=== PATIENT | female | born 1975 | race Caucasian/White ===

== ENCOUNTER → 2021-01-10 15:29 | Outpatient (BNVA) | payer SELFPAY | PROVIDERS: Visit Provider Obstetrics & Gynecology | DX: N93.9 Abnormal uterine and vaginal bleeding, unspecified (principal); Z12.39 Encounter for other screening for malignant neoplasm of breast | CPT/HCPCS: 84443; 85025 ==

== ENCOUNTER → 2024-12-01 15:17 | Outpatient (BNVA) | payer SELFPAY | PROVIDERS: PCP Nurse Practitioner Family; Visit Provider Nurse Practitioner | DX: G56.03 Carpal tunnel syndrome, bilateral upper limbs (principal); M65.332 Trigger finger, left middle finger; M65.331 Trigger finger, right middle finger | CPT/HCPCS: 73130 ==

== ENCOUNTER 2025-02-25 08:17 | Outpatient (CLI) | payer OTHER, SELFPAY ==
[2025-02-25 08:49] LABS: Hematocrit 44.6 % (36-47); Hemoglobin 14.60 g/dL (11.27-16.99); Mean Corpuscular HGB Conc 32.7 g/dL (30-55); Mean Corpuscular Hemoglobin 30.0 pg (27-33); Mean Corpuscular Volume 91.6 fl (85-98); Nucleated Red Blood Cells % 0 %; Platelet Count 324 10^3/cmm (157-399); Red Blood Count 4.87 10^6/uL (3.85-5.65); White Blood Count 6.19 10^3/uL (3.29-11.43)
[2025-02-25 08:51] LABS: Glucose Urine UA Negative (Normal); Nitrate Urine Negative (Negative); Specific Gravity, Urine 1.020 (1.005-1.030)
[2025-02-25 08:53] LABS: Add Urine Microscopic? YES
[2025-02-25 09:13] LABS: Alanine Aminotransferase 25 U/L (0-33); Albumin Level 4.3 g/dL (3.5-5.2); Alkaline Phosphatase 97 U/L (35-105); Anion Gap 13.4 (5-19); Aspartate Amino Transferase 18 U/L (0-32); Blood Urea Nitrogen 13 mg/dL (6-20); Calcium 9.2 mg/dL (8.5-10.5); Carbon Dioxide 28 mmol/L (22-29); Chloride 102 mmol/L (98-107); Globulin 3.3 g/dL (1.3-4.6); Glucose 109 mg/dL (65-115); Osmolality Calculated 289 mOsm/kg (285-295); Potassium 4.4 mmol/L (3.5-5.1); Sodium 139 mmol/L (136-145); Total Protein 7.6 g/dL (6.6-8.7)
== END 2025-02-25 08:18 | disposition home or self-care (01) ==
PROVIDERS: PCP Nurse Practitioner Family; Visit Provider Nurse Practitioner
DX: G56.01 Carpal tunnel syndrome, right upper limb (principal)
CPT/HCPCS: 36415; 80053; 81001; 85025

== ENCOUNTER 2025-03-05 11:31 | Day surgery (SDC) | payer OTHER, SELFPAY ==
[2025-03-05] VITALS (12 sets, daily range): BP systolic 121–171; BP diastolic 69–104; PULSE 49–99; RESP 12–17; TEMP 36.2–36.8; O2SAT 92–99; BMI 35.4
[2025-03-05] MEDS: acetaminophen 1,000 MG/100 ML PIGGYBACK 400 MG IV (12:05)
--- NOTE | 2025-03-05 13:47 | ANES.PREANE2 ---
Pre-Anesthetic Assessment Height/Weight: Height 1.57 m Weight 87.997 kg Temp Pulse Resp BP Pulse Ox O2 Del Method 97.7 F 49 L 17 171/104 95 Room Air 03/05/25 11:53 03/05/25 11:53 03/05/25 11:53 03/05/25 11:53 03/05/25 11:53 03/05/25 11:54 Operation Date: 03/05/25 13:45 Proposed Procedures p RIGHT Carpal Tunnel Release(Right) - Marycarmen Durbin MD s RIGHT Long FingerTrigger Finger Release(Right) - Marycarmen Durbin MD Familial anesthetic complications: None Was Beta Yeyo taken within 24 hours: N/A Was Clonidine taken within 24 hours: N/A Last intake: Intake Last Liquid Date 03/04/25 Last Liquid Time 18:30 Last Solid Date 03/04/25 Last Solid Time 18:30 Social No alcohol and No tobacco Exam alert, oriented x 3, clear to auscultation bilaterally and regular rate & rhythm Airway Mallampati: Class II Dentition: full CV/HEM Hypertension Anesthetic Plan ASA status: 2 Anesthesia: General Risk of > 500 ml blood loss (7ml/kg in children): No Medications/Allergies Home Medications ?Medication ?Instructions ?Recorded ?Confirmed ?Last Taken ?Type citalopram 20 mg tablet 20 mg PO DAILY 01/10/21 03/05/25 03/05/25 History lisinopril 20 mg tablet 20 mg PO DAILY 01/10/21 03/04/25 03/04/25 History Allergies Allergy/AdvReac Type Severity Reaction Status Date / Time No Known Allergies Allergy Verified 03/05/25 11:49 Current Medications Generic Name Dose Route Start Last Admin Trade Name Freq PRN Reason Stop Dose Admin Sodium Chloride 1,000 mls @ 30 mls/hr 03/05/25 11:45 03/05/25 12:02 Sodium Chloride 0.9% IV 03/06/25 11:44 30 mls/hr .Q24H JACE Administration PFSH Anesthesia Medical History Anxiety and depression Diagnosed at the age of 24 and has been on medication since then managed by her primary care provider. Does not have a therapist or psychiatrist. Chronic hypertension Diagnosed at the age of 27 and has been well controlled on lisinopril managed by her primary care provider. 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 No pertinent past medical history Denies diabetes, asthma, seizures, DVT/PE PCP: GRECIA [facility] Surgical History S/P tubal ligation Laparoscopic procedure performed in 2010. Status post breast reduction 2020-bilateral Family History Grandmother Breast cancer maternal, diagnosed in her 60s Father Diabetes Grandfather Heart disease maternal Mother Hyperlipidemia Hypertension Stroke TIAs Denies family history of Colon cancer Ovarian cancer Uterine cancer Thyroid disease Social History Smoking and tobacco/nicotine status: never used tobacco/nicotine
--- NOTE | 2025-03-05 13:48 | W.PM.OPSUD ---
Surgery/Procedure H&P Update DATE OF PROCEDURE: March 05, 2025 DATE H&P PERFORMED: 02/20/25 H&P UPDATE INFORMATION: I have reviewed H&P completed within last 30 days, I have examined patient prior to procedure, No changes to prior documentation, H&P is in [facility] EMR on date indicated and Risks and benefits of the procedure reviewed PLANNED PROCEDURE: Operation Date: 03/05/25 13:45 Proposed Procedures p RIGHT Carpal Tunnel Release(Right) - Marycarmen Durbin MD s RIGHT Long FingerTrigger Finger Release(Right) - Marycarmen Durbin MD Related Problem List Diagnoses 1. Trigger finger, right middle finger: 2. Right carpal tunnel syndrome:
[2025-03-05] MEDS: ceFAZolin 2,000 mg SDV 2000 MG IVP (14:11)
[2025-03-05] MEDS: BUPivacaine 0.5% INJ 30 mL XX (14:32)
--- NOTE | 2025-03-05 15:48 | P.OP_ITS ---
Operative Report Date of procedure: March 05, 2025 Pre-op diagnosis: Right carpal tunnel syndrome and right long finger triggering Post-op diagnosis: Right carpal tunnel syndrome and right long finger triggering Post-op findings: Significant compression across the carpal canal with some fibrous tissue, triggering of the right long finger with abrasion injury to the flexor tendons Procedure done: Right carpal tunnel release Right long finger trigger release Implants: None Specimens removed/disposition: None Pathology: None Surgeon: Marycarmen Durbin MD Retail Management Trainee: None Anesthesia: General (Per LMA, ASA 2) Estimated blood loss (mL): 2 Tourniquet time (min): 32 (At 250 mmHg) IV fluids (mL): 1,100 Complications: None Findings: As above Condition: stable Disposition: PACU (Then to same-day surgery for discharge to home) Brief History: This 49-year-old woman presented to the office complaining of numbness and tingling in her right hand. She had nerve conduction studies documenting entr apment of the right median nerve at the wrist. At the time of her preoperative appointment discussion, she also complains significantly of triggering of the right long finger. Therefore, she was scheduled for right carpal tunnel release with release of right long trigger finger at the same time. Risks and complications were discussed with her. Consents were signed and questions were answered. The afternoon of surgery, she had further opportunity to ask questions. Procedure: The patient was brought to the operating theater. The patient had a general anesthesia per LMA. ASA 2. The tourniquet was elevated to 250 mmHg for a total tourniquet time of 32 minutes. The patient was also given Ancef 2gm preoperatively. The arm was then prepped and draped with DuraPrep in usual fashion with the arm draped free. A surgical pause was performed. At the time, the surgical pause, we confirmed the site and side of surgery. We also confirmed the patient's identity, appropriate and timely administration of preoperative antibiotics and preoperative surgical markings. An incision was then made along the thenar crease. The incision crossed the wrist joint in a curvilinear fashion. Dissection continued through skin and soft tissues using a scalpel. The palmaris longus was identified along with the transverse carpal ligament. Each of these was released carefully to avoid injury to the median nerve. We were able to dissect gently into the carpal canal which was noted to be quite tight with significant compression across the median nerve. The nerve was visualized and was an hourglass shape. The canal was subsequently palpated to assure there was no bony encroachment upon the canal. The canal was then palpated distally and proximally to assure that my small finger was passed easily without impingement. Finding this to be so, attention was directed to closure. The wound was irrigated with ropivacaine plain. It was then closed with 3-0 nylon in an interrupted mattress fashion. Attention was then directed to the right long finger. An incision was made along the distal palmar crease beneath the long finger. Dissection continued through the skin to the subcutaneous tissues using a scalpel. Blunt dissection was then utilized to spread soft tissues and allow access to the A1 adriana. Each A1 adriana was identified. It was then incised longitudinally and sharply using a knife. This was accomplished without difficulty and atraumatically. Once the A1 adriana was released, the tendons were brought up out of the wound and evaluated. There was evidence of abrasion from the A1 adriana on the flexor tendons, but there was no significant loss of size or mass. The tendons were returned to normal position. The wound was irrigated and subsequently closed with 3-0 nylon in an interrupted mattress fashion. The wound was also injected with bupivacaine subcutaneously. Sterile dressings were placed consisting of Dermabond, OpSite, fluffed fluffs, sterile soft roll, and an Tony wrap. Tourniquet was released after 32 minutes. There were no specimens. The procedure was well-tolerated and the patient will be discharged home to follow-up in the office. Related Problem List Diagnoses 1. Right carpal tunnel syndrome: 2. Trigger finger, right middle finger:
--- NOTE | 2025-03-05 17:13 | ANE.PACU2 ---
Inpatient post-anesthesia follow up: Airway intact: Yes Vital signs: Temperature 97.8 F Pulse Rate 71 Respiratory Rate 17 Blood Pressure 138/91 Pulse Oximetry 95 Oxygen Delivery Me thod Room Air Oxygen Flow Rate 6 Fraction of Inspir ed Oxygen Hydration adequate: Yes Nausea and vomiting: No Pain level: 1 Mental status: Baseline
== END 2025-03-05 16:30 | disposition home or self-care (01) ==
PROVIDERS: PCP Nurse Practitioner Family; Visit Provider Specialist
PROC: (CPT 64721; principal; 2025-03-05 13:45)
PROC: (CPT 64721; 2025-03-05 13:45)
DX: G56.01 Carpal tunnel syndrome, right upper limb (principal); M65.331 Trigger finger, right middle finger; I10 Essential (primary) hypertension; F41.8 Other specified anxiety disorders
CPT/HCPCS: 64721; 26055; J0131; J0690; J1100; J2003; J2250; J2405; J2704; J3010; J3490; J7030; J9999